=== PATIENT | female | born 1935 | race Caucasian/White ===

== ENCOUNTER 2018-12-31 13:01 | Inpatient (IN) | payer MEDICARE, OTHER, MEDICAID ==
[2018-12-31 13:49] LABS: ADD MAN DIFF? NO
[2018-12-31 14:07] LABS: WHITE BLOOD COUNT 7.2 10^3/ul (4.8-10.8)
[2018-12-31 14:07] LABS: ABNORMAL IP MESSAGE 1; BASOPHIL # 0.1 10^3/ul (0.0-0.1); BASOPHILS % 0.7 % (0.0-2.0); EOSINOPHILS # 0.2 10^3/ul (0.0-0.5); EOSINOPHILS % 3.1 % (0.0-7.0); HEMATOCRIT 23.5 % (37.0-47.0); LYMPHOCYTES # 1.4 10^3/ul (0.8-2.9); LYMPHOCYTES % 18.8 % (15.0-51.0); MEAN CORPUSCULAR HEMOGLOBIN 24.8 pg (29.0-33.0); MEAN CORPUSCULAR HGB CONC 29.4 g/dl (32.0-37.0); MEAN CORPUSCULAR VOLUME 84.5 fl (82.0-101.0); MEAN PLATELET VOLUME 11.4 fl (7.4-10.4); MONOCYTES % 13.8 % (0.0-11.0); NEUTROPHIL # 4.6 10^3/ul (1.6-7.5); NEUTROPHILS % 63.2 % (39.0-77.0); PLATELET COUNT 336 10^3/UL (140-415); RED BLOOD COUNT 2.78 10^6/ul (4.20-5.40); RED CELL DISTRIBUTION WIDTH 14.8 % (11.5-14.5)
[2018-12-31 14:13] LABS: HEMOGLOBIN 6.9 g/dl (12.0-16.0); POSITIVE DIFF @See below
[2018-12-31 14:26] LABS: INR 1.08; PROTIME 14.1 Sec (11.9-14.9); PT RATIO 1.1
[2018-12-31 14:27] LABS: ANION GAP 11 (5-13); BLOOD UREA NITROGEN 80 mg/dl (7-20); CALCIUM 8.8 mg/dl (8.4-10.2); CARBON DIOXIDE 35 mmol/L (21-31); CHLORIDE 93 mmol/L (97-110); CREATININE 2.04 mg/dl (0.44-1.00); GLUCOSE 177 mg/dl (70-220); PARTIAL THROMBOPLASTIN TIME 30.1 Sec (23.0-35.0); POTASSIUM 3.6 mmol/L (3.5-5.1); SODIUM 139 mmol/L (135-144)
[2018-12-31 14:34] LABS: ANISOCYTOSIS 1+ (0-0); EOSINOPHILS % (M) 1 % (0-7); GIANT THROMBO% (M) 8 % (0-0); HYPOCHROMASIA 3+ (0-0); LYMPHOCYTES #M 1.2 10^3/ul (0.8-2.9); LYMPHOCYTES % (M) 18 % (15-51); MICROCYTOSIS 1+ (0-0); MONOCYTE #M 0.7 10^3/ul (0.3-0.9); MONOCYTES % (M) 11 % (0-11); PLATELET ESTIMATE NORMAL; POIKILOCYTOSIS 1+ (0-0); POLYCHROMASIA 3+ (0-0); RBC MORPHOLOGY COMMENT @See below; REACTIVE LYMPHOCYTES #M 0.1 10^3/ul (0.0-0.0); REACTIVE LYMPHOCYTES% (M) 2 % (0-0); SEGMENTED NEUTROPHILS (M) % 68 % (39-77); SMUDGE%M 1 % (0-0); WBC MORPHOLOGY COMMENT @See below
[2018-12-31 14:39] LABS: B-TYPE NATRIURETIC PEPTIDE 6120 PG/ML (0-450); TROPONIN-I < 0.012 ng/ml (0.000-0.120)
[2018-12-31] MEDS ORDERED: ONDANSETRON 4 MG INJ IV (15:30)
[2018-12-31] MEDS ORDERED: morphine 2 MG INJ IV (15:30)
[2018-12-31] MEDS ORDERED: LORAZEPAM 2 MG INJ IV (15:30)
[2018-12-31] MEDS ORDERED: hydrALAzine 20 MG INJ IV (15:30)
[2018-12-31] MEDS ORDERED: ACETAMINOPHEN 325 MG TAB PO (15:30)
[2018-12-31] MEDS ORDERED: ALBUTEROL/IPRATROPIUM (NEB) 3 ML AMP HHN (15:30)
[2018-12-31] MEDS ORDERED: NACL 0.9% 3 ML SYG IV (15:30)
[2018-12-31] MEDS ORDERED: MAGNESIUM HYDROXIDE 30ML CUP PO (15:30)
[2018-12-31] MEDS ORDERED: NITROGLYCERIN (SL) 0.4 MG TAB SL (15:30)
[2018-12-31] MEDS ORDERED: HYDROCODONE/APAP (5/325) TAB PO (15:30)
[2018-12-31] MEDS ORDERED: DOCUSATE SODIUM 100 MG CAP PO (15:30)
[2018-12-31] MEDS ORDERED: GLUCOSE GEL 15 GRAM TUBE BUCCAL (16:30)
[2018-12-31] MEDS ORDERED: GLUCOSE GEL 15 GRAM TUBE PO ×2 (16:30)
[2018-12-31] MEDS ORDERED: DEXTROSE 50% 50 ML SYRINGE IV ×2 (16:30)
[2018-12-31] MEDS ORDERED: GLUCAGON 1 MG INJ IM (16:30)
[2018-12-31 16:54] LABS: FREE T4 (FREE THYROXINE) 2.07 ng/dl (0.85-1.93)
[2018-12-31] MEDS: INSULIN ASPART [NOVOLOG] 3 ML PEN SC ×3 (17:00→21:30)
[2018-12-31] MEDS: FUROSEMIDE 40 MG INJ IV (18:54)
[2018-12-31] MEDS: PANTOPRAZOLE (EC) 40 MG TAB PO (18:54)
[2018-12-31 19:18] LABS: PROTIME 14.3 Sec (11.9-14.9); PT RATIO 1.1
[2018-12-31 19:19] LABS: PARTIAL THROMBOPLASTIN TIME 28.9 Sec (23.0-35.0)
[2018-12-31 19:30] LABS: CK-MB 0.46 ng/ml (0.0-2.4); TROPONIN-I < 0.012 ng/ml (0.000-0.120)
[2018-12-31 19:31] LABS: CREATINE KINASE < 20 IU/L (23-200)
[2018-12-31] MEDS ORDERED: HEPARIN 5,000 UNIT/1 ML VIAL SC (21:00)
[2018-12-31] MEDS: ATORVASTATIN 20 MG TAB PO (21:19)
[2018-12-31] MEDS: FERROUS SULFATE (EC) 325 MG TAB PO (21:19)
[2018-12-31] MEDS: INSULIN GLARGINE [LANTus] (100 UNITS/ML) SYG SC (21:30)
[2018-12-31 21:52] LABS: ADD UMIC NO; UR ASCORBIC ACID NEGATIVE (NEGATIVE); UR BILIRUBIN (Dip) NEGATIVE (NEGATIVE); UR BLOOD (Dip) NEGATIVE (NEGATIVE); UR CLARITY CLEAR (CLEAR); UR COLOR STRAW (YELLOW); UR GLUCOSE (Dip) NEGATIVE (NEGATIVE); UR KETONES (Dip) NEGATIVE (NEGATIVE); UR LEUKOCYTE ESTERASE (Dip) NEGATIVE Leu/ul (NEGATIVE); UR NITRITE (Dip) NEGATIVE (NEGATIVE); UR SPECIFIC GRAVITY (Dip) 1.008 (1.003-1.030); UR TOTAL PROTEIN (Dip) NEGATIVE (NEGATIVE); UR UROBILINOGEN (Dip) NEGATIVE (NEGATIVE)
[2018-12-31 22:15] LABS: IMMEDIATE SPIN CROSSMATCH 1 2
[2018-12-31 22:26] LABS: CREATININE,URINE RANDOM 26.31 mg/dl (20-320)
[2018-12-31 22:26] LABS: SODIUM,URINE RANDOM 74 mmol/L (30-90)
[2018-12-31] MEDS: ALPRAZOLAM 0.5 MG TAB PO (23:17)
[2019-01-01] MEDS: ZOLPIDEM 5 MG TAB PO (00:30)
[2019-01-01 01:22] LABS: CREATINE KINASE < 20 IU/L (23-200)
[2019-01-01 01:29] LABS: CK-MB 0.44 ng/ml (0.0-2.4); TROPONIN-I < 0.012 ng/ml (0.000-0.120)
[2019-01-01] MEDS ORDERED: ACCU-CHEK XX (02:00)
[2019-01-01] MEDS: FUROSEMIDE 40 MG INJ IV (05:24)
[2019-01-01] MEDS: PANTOPRAZOLE (EC) 40 MG TAB PO (05:24)
[2019-01-01] MEDS: INSULIN ASPART [NOVOLOG] 3 ML PEN SC ×2 (05:37→12:00)
[2019-01-01] MEDS ORDERED: PANTOPRAZOLE 40 MG INJ IV (06:00)
[2019-01-01] MEDS ORDERED: PANTOPRAZOLE (EC) 40 MG TAB PO (06:00)
[2019-01-01 06:22] LABS: ADD MAN DIFF? NO
[2019-01-01 06:27] LABS: BASOPHIL # 0.1 10^3/ul (0.0-0.1); BASOPHILS % 0.7 % (0.0-2.0); EOSINOPHILS # 0.2 10^3/ul (0.0-0.5); EOSINOPHILS % 2.4 % (0.0-7.0); HEMOGLOBIN 8.5 g/dl (12.0-16.0); LYMPHOCYTES # 1.2 10^3/ul (0.8-2.9); LYMPHOCYTES % 16.3 % (15.0-51.0); MEAN CORPUSCULAR HEMOGLOBIN 25.8 pg (29.0-33.0); MEAN CORPUSCULAR HGB CONC 31.5 g/dl (32.0-37.0); MEAN CORPUSCULAR VOLUME 81.8 fl (82.0-101.0); MEAN PLATELET VOLUME 10.8 fl (7.4-10.4); MONOCYTES % 13.4 % (0.0-11.0); NEUTROPHIL # 4.8 10^3/ul (1.6-7.5); NEUTROPHILS % 66.6 % (39.0-77.0); PLATELET COUNT 312 10^3/UL (140-415); RED CELL DISTRIBUTION WIDTH 14.6 % (11.5-14.5)
[2019-01-01 06:27] LABS: WHITE BLOOD COUNT 7.2 10^3/ul (4.8-10.8)
[2019-01-01 06:47] LABS: HEMOGLOBIN A1C 8.9 % (0-5.9)
[2019-01-01 06:56] LABS: ANION GAP 9 (5-13); BLOOD UREA NITROGEN 76 mg/dl (7-20); CALCIUM 8.7 mg/dl (8.4-10.2); CARBON DIOXIDE 38 mmol/L (21-31); CHLORIDE 93 mmol/L (97-110); CREATININE 1.79 mg/dl (0.44-1.00); GLUCOSE 140 mg/dl (70-220); PHOSPHORUS 3.9 mg/dl (2.5-4.9); POTASSIUM 3.2 mmol/L (3.5-5.1); SODIUM 140 mmol/L (135-144)
[2019-01-01 07:03] LABS: CHOL/HDL RATIO 3.6 RATIO; HDL CHOLESTEROL 26 mg/dl (33-92); LDL CHOLESTEROL,CALCULATED 43 mg/dl; TRIGLYCERIDES 127 mg/dl (0-149)
[2019-01-01 07:03] LABS: CHOLESTEROL 94 mg/dl (100-200)
[2019-01-01 07:23] LABS: THYROID STIMULATING HORMONE 0.634 MIU/L (0.465-4.680)
[2019-01-01] MEDS: FERROUS SULFATE (EC) 325 MG TAB PO ×2 (09:00→12:26)
[2019-01-01] MEDS: POTASSIUM CHLORIDE (SR) 10 MEQ TAB PO ×2 (09:00→12:29)
[2019-01-01] MEDS: POTASSIUM CHLORIDE 100 ML IVPB (09:00)
[2019-01-01] MEDS: METOLAZONE 5 MG TAB PO (09:00)
[2019-01-01] MEDS: POTASSIUM CHLORIDE (SR) 20 MEQ TAB PO ×2 (09:16→12:22)
[2019-01-01 09:40] LABS: AADO2 Arterial 36.3 mmHg (7.0-24.0); Allen Test ACCEPTAB; Arterial Blood Gas Oxygen Sat 87.8 mmHG (95.0-100.0); Arterial COHb 0.6 % (0.0-3.0); Arterial Fraction of Oxyhgb 87.1 % (93.0-99.0); Arterial HCO3 34.2 mmol/L (22.0-26.0); Arterial MetHb 0.2 % (0.0-1.5); Arterial pCO2 50.2 mmhg (35-45); MODE ROOM AIR; Site Right Radial
[2019-01-01] MEDS ORDERED: POTASSIUM CHLORIDE (SR) 20 MEQ TAB PO (11:50)
[2019-01-03 15:52] LABS: CREATININE, RANDOM URINE 29 mg/dL (20-275); MICROALBUMIN 0.5 mg/dL; MICROALBUMIN/CREATININE RATIO 17 (<30)
== END 2019-01-01 15:59 | disposition left against medical advice (07) | DRG 377 ==
LOC: E/R 13:01 → TEL 15:24
PROVIDERS: Pediatrics Neonatal-Perinatal Medicine
PROC: 30233N1 Transfusion of Nonautologous Red Blood Cells into Peripheral Vein, Percutaneous Approach (ICD-10-PCS; principal; 2018-12-31)
DX: K25.4 Chronic or unspecified gastric ulcer with hemorrhage (principal); I50.21 Acute systolic (congestive) heart failure; D62 Acute posthemorrhagic anemia; N17.9 Acute kidney failure, unspecified; I13.0 Hypertensive heart and chronic kidney disease with heart failure and stage 1 through stage 4 chronic kidney disease, or unspecified chronic kidney disease; I48.2 Chronic atrial fibrillation; E11.22 Type 2 diabetes mellitus with diabetic chronic kidney disease; I35.0 Nonrheumatic aortic (valve) stenosis; E78.5 Hyperlipidemia, unspecified; I25.10 Atherosclerotic heart disease of native coronary artery without angina pectoris; I12.9 Hypertensive chronic kidney disease with stage 1 through stage 4 chronic kidney disease, or unspecified chronic kidney disease; N18.9 Chronic kidney disease, unspecified; E87.6 Hypokalemia; Z79.4 Long term (current) use of insulin
CPT/HCPCS: 36415; 36430; 36600; 71045; 76775; 80048; 80061; 81003; 82043; 82550; 82553; 82803; 82962; 83036; 83735; 83880; 84100; 84155; 84300; 84439; 84443; 84484; 85025; 85610; 85730; 86850; 86900; 86901; 86920; 87086; 93005; 93306; 97161; 97167; 99285-25

== ENCOUNTER 2019-06-05 19:28 | Inpatient (IN) | payer MEDICARE, OTHER ==
[2019-06-05 20:00] LABS: ADD MAN DIFF? NO
[2019-06-05] MEDS: NITROGLYCERIN 2% 1 GM OINT PKT TD (20:02)
[2019-06-05] MEDS: ASPIRIN 81 MG TAB PO (20:02)
[2019-06-05] MEDS: FUROSEMIDE 40 MG INJ IV (20:02)
[2019-06-05] MEDS: NITROGLYCERIN (SL) 0.4 MG TAB SL (20:02)
[2019-06-05 20:38] LABS: ANION GAP 11 (5-13); BLOOD UREA NITROGEN 114 mg/dl (7-20); CALCIUM 8.8 mg/dl (8.4-10.2); CARBON DIOXIDE 37 mmol/L (21-31); CHLORIDE 89 mmol/L (97-110); CREATININE 2.37 mg/dl (0.44-1.00); GLUCOSE 247 mg/dl (70-220); INR 1.18; POTASSIUM 4.7 mmol/L (3.5-5.1); PROTIME 15.1 Sec (11.9-14.9); PT RATIO 1.2; SODIUM 137 mmol/L (135-144)
[2019-06-05 20:39] LABS: PARTIAL THROMBOPLASTIN TIME 32.1 Sec (23.0-35.0)
[2019-06-05 20:48] LABS: ABNORMAL IP MESSAGE 1; BASOPHIL # 0.1 10^3/ul (0.0-0.1); BASOPHILS % 0.6 % (0.0-2.0); EOSINOPHILS # 0.1 10^3/ul (0.0-0.5); EOSINOPHILS % 0.8 % (0.0-7.0); HEMATOCRIT 30.4 % (37.0-47.0); HEMOGLOBIN 8.8 g/dl (12.0-16.0); LYMPHOCYTES # 1.3 10^3/ul (0.8-2.9); LYMPHOCYTES % 9.9 % (15.0-51.0); MEAN CORPUSCULAR HEMOGLOBIN 26.2 pg (29.0-33.0); MEAN CORPUSCULAR HGB CONC 28.9 g/dl (32.0-37.0); MEAN CORPUSCULAR VOLUME 90.5 fl (82.0-101.0); MEAN PLATELET VOLUME 11.9 fl (7.4-10.4); MONOCYTE # 1.7 10^3/ul (0.3-0.9); NEUTROPHIL # 9.9 10^3/ul (1.6-7.5); NEUTROPHILS % 74.7 % (39.0-77.0); PLATELET COUNT 372 10^3/UL (140-415); RED BLOOD COUNT 3.36 10^6/ul (4.20-5.40); RED CELL DISTRIBUTION WIDTH 15.9 % (11.5-14.5)
[2019-06-05 20:48] LABS: WHITE BLOOD COUNT 13.3 10^3/ul (4.8-10.8)
[2019-06-05 21:01] LABS: POSITIVE DIFF @See below
[2019-06-05] MEDS ORDERED: ONDANSETRON 4 MG INJ IV ×2 (22:00→23:30)
[2019-06-05] MEDS ORDERED: ZOLPIDEM 5 MG TAB PO (23:30)
[2019-06-05] MEDS ORDERED: NACL 0.9% 3 ML SYG IV (23:30)
[2019-06-05] MEDS ORDERED: NITROGLYCERIN (SL) 0.4 MG TAB SL (23:30)
[2019-06-06] MEDS ORDERED: GLUCAGON 1 MG INJ IM (06:00)
[2019-06-06] MEDS ORDERED: DEXTROSE 50% 50 ML SYRINGE IV ×2 (06:00)
[2019-06-06] MEDS ORDERED: GLUCOSE GEL 15 GRAM TUBE BUCCAL (06:00)
[2019-06-06] MEDS ORDERED: GLUCOSE GEL 15 GRAM TUBE PO ×2 (06:00)
[2019-06-06] MEDS: FUROSEMIDE 40 MG INJ IV (06:19)
[2019-06-06] MEDS: PANTOPRAZOLE (EC) 40 MG TAB PO (06:19)
[2019-06-06 07:02] LABS: ADD MAN DIFF? NO
[2019-06-06 07:07] LABS: WHITE BLOOD COUNT 9.9 10^3/ul (4.8-10.8)
[2019-06-06 07:07] LABS: BASOPHIL # 0.1 10^3/ul (0.0-0.1); BASOPHILS % 0.7 % (0.0-2.0); EOSINOPHILS # 0.1 10^3/ul (0.0-0.5); EOSINOPHILS % 1.4 % (0.0-7.0); HEMATOCRIT 26.2 % (37.0-47.0); HEMOGLOBIN 7.6 g/dl (12.0-16.0); LYMPHOCYTES # 1.1 10^3/ul (0.8-2.9); LYMPHOCYTES % 10.6 % (15.0-51.0); MEAN CORPUSCULAR HEMOGLOBIN 26.1 pg (29.0-33.0); MONOCYTE # 1.4 10^3/ul (0.3-0.9); MONOCYTES % 13.6 % (0.0-11.0); NEUTROPHIL # 7.3 10^3/ul (1.6-7.5); NEUTROPHILS % 73.1 % (39.0-77.0); PLATELET COUNT 336 10^3/UL (140-415); RED BLOOD COUNT 2.91 10^6/ul (4.20-5.40); RED CELL DISTRIBUTION WIDTH 15.7 % (11.5-14.5)
[2019-06-06 07:24] LABS: ALANINE AMINOTRANSFERASE 27 IU/L (13-69); ALBUMIN 3.1 g/dl (3.3-4.9); ALBUMIN/GLOBULIN RATIO 1.06; ALKALINE PHOSPHATASE 111 IU/L (42-121); ANION GAP 13 (5-13); ASPARTATE AMINO TRANSFERASE 19 IU/L (15-46); BILIRUBIN,INDIRECT 0.4 mg/dl (0-1.1); BILIRUBIN,TOTAL 0.4 mg/dl (0.2-1.3); BLOOD UREA NITROGEN 112 mg/dl (7-20); CALCIUM 8.2 mg/dl (8.4-10.2); CARBON DIOXIDE 34 mmol/L (21-31); CHLORIDE 91 mmol/L (97-110); CHOL/HDL RATIO 4.1 RATIO; CHOLESTEROL 100 mg/dl (100-200); CREATINE KINASE 159 IU/L (23-200); CREATININE 2.84 mg/dl (0.44-1.00); GLUCOSE 284 mg/dl (70-220); HDL CHOLESTEROL 24 mg/dl (33-92); LDL CHOLESTEROL,CALCULATED 46 mg/dl; POTASSIUM 4.1 mmol/L (3.5-5.1); SODIUM 138 mmol/L (135-144); TRIGLYCERIDES 152 mg/dl (0-149)
[2019-06-06 07:26] LABS: HEMOGLOBIN A1C 7.4 % (0-5.9)
[2019-06-06 07:36] LABS: B-TYPE NATRIURETIC PEPTIDE 9610 PG/ML (0-450); CK-MB 1.66 ng/ml (0.0-2.4); TROPONIN-I 0.051 ng/ml (0.000-0.120)
[2019-06-06] MEDS: INSULIN ASPART [NOVOLOG] 3 ML PEN SC ×4 (08:17→21:00)
[2019-06-06] MEDS: METOLAZONE 5 MG TAB PO (10:01)
[2019-06-06] MEDS: SERTRALINE 50 MG TAB PO (10:01)
[2019-06-06] MEDS: FERROUS SULFATE (EC) 325 MG TAB PO ×2 (10:02→20:28)
[2019-06-06] MEDS: POTASSIUM CHLORIDE (SR) 10 MEQ TAB PO (10:04)
[2019-06-06] MEDS: HEPARIN 5,000 UNIT/1 ML VIAL SC ×2 (10:10→20:28)
[2019-06-06] MEDS: ACETAMINOPHEN 325 MG TAB PO (10:30)
[2019-06-06] MEDS: HYDROCODONE/APAP (5/325) TAB PO ×2 (11:56→22:42)
[2019-06-06] MEDS: SOD CHLORIDE 0.9% 250 ML IV* (13:33)
[2019-06-06] MEDS: ATORVASTATIN 20 MG TAB PO (20:29)
[2019-06-06] MEDS: INSULIN GLARGINE [LANTus] (100 UNITS/ML) SYG SC (21:01)
[2019-06-06 22:03] LABS: IMMEDIATE SPIN CROSSMATCH 1 1
[2019-06-07] MEDS: ACETAMINOPHEN 325 MG TAB PO (02:11)
[2019-06-07] MEDS: ACCU-CHEK XX (02:11)
[2019-06-07] MEDS: HYDROCODONE/APAP (5/325) TAB PO ×5 (04:38→18:42)
[2019-06-07] MEDS: PANTOPRAZOLE (EC) 40 MG TAB PO (06:33)
[2019-06-07] MEDS: FUROSEMIDE 40 MG INJ IV (06:36)
[2019-06-07] MEDS: POTASSIUM CHLORIDE (SR) 10 MEQ TAB PO (08:14)
[2019-06-07] MEDS: FERROUS SULFATE (EC) 325 MG TAB PO ×2 (08:14→22:57)
[2019-06-07] MEDS: SERTRALINE 50 MG TAB PO (08:14)
[2019-06-07] MEDS: HEPARIN 5,000 UNIT/1 ML VIAL SC (08:15)
[2019-06-07] MEDS: INSULIN ASPART [NOVOLOG] 3 ML PEN SC ×5 (08:21→21:04)
[2019-06-07 11:15] LABS: ADD MAN DIFF? NO
[2019-06-07 11:20] LABS: BASOPHIL # 0.1 10^3/ul (0.0-0.1); BASOPHILS % 0.7 % (0.0-2.0); EOSINOPHILS # 0.3 10^3/ul (0.0-0.5); EOSINOPHILS % 3.1 % (0.0-7.0); HEMATOCRIT 28.2 % (37.0-47.0); HEMOGLOBIN 8.3 g/dl (12.0-16.0); LYMPHOCYTES % 12.1 % (15.0-51.0); MEAN CORPUSCULAR HEMOGLOBIN 26.5 pg (29.0-33.0); MEAN CORPUSCULAR HGB CONC 29.4 g/dl (32.0-37.0); MEAN CORPUSCULAR VOLUME 90.1 fl (82.0-101.0); MEAN PLATELET VOLUME 11.4 fl (7.4-10.4); MONOCYTES % 11.9 % (0.0-11.0); NEUTROPHIL # 5.8 10^3/ul (1.6-7.5); NEUTROPHILS % 71.7 % (39.0-77.0); PLATELET COUNT 324 10^3/UL (140-415); RED BLOOD COUNT 3.13 10^6/ul (4.20-5.40); RED CELL DISTRIBUTION WIDTH 15.7 % (11.5-14.5)
[2019-06-07 11:39] LABS: ANION GAP 10 (5-13); CALCIUM 8.2 mg/dl (8.4-10.2); CARBON DIOXIDE 37 mmol/L (21-31); CHLORIDE 87 mmol/L (97-110); CREATININE 3.69 mg/dl (0.44-1.00); GLUCOSE 234 mg/dl (70-220); POTASSIUM 4.3 mmol/L (3.5-5.1); SODIUM 134 mmol/L (135-144)
[2019-06-07 11:53] LABS: BLOOD UREA NITROGEN 127 mg/dl (7-20)
[2019-06-07] MEDS: morphine 2 MG INJ IV (13:51)
[2019-06-07] MEDS: BACLOFEN 10 MG TAB PO ×2 (16:17→21:00)
[2019-06-07] MEDS: METOPROLOL 25 MG TAB PO ×2 (16:21→22:50)
[2019-06-07 18:01] LABS: CREATINE KINASE 93 IU/L (23-200)
[2019-06-07 18:15] LABS: CK INDEX 1.3; CK-MB 1.21 ng/ml (0.0-2.4)
[2019-06-07 18:49] LABS: ADD UMIC YES; UR ASCORBIC ACID NEGATIVE (NEGATIVE); UR BILIRUBIN (Dip) NEGATIVE (NEGATIVE); UR BLOOD (Dip) NEGATIVE (NEGATIVE); UR CLARITY CLEAR (CLEAR); UR COLOR AMBER (YELLOW); UR GLUCOSE (Dip) NEGATIVE (NEGATIVE); UR KETONES (Dip) NEGATIVE (NEGATIVE); UR LEUKOCYTE ESTERASE (Dip) 1+ Leu/ul (NEGATIVE); UR NITRITE (Dip) NEGATIVE (NEGATIVE); UR RBC 1 /HPF (0-5); UR SPECIFIC GRAVITY (Dip) 1.014 (1.003-1.030); UR TOTAL PROTEIN (Dip) NEGATIVE (NEGATIVE); UR UROBILINOGEN (Dip) NEGATIVE (NEGATIVE); UR WBC 4 /HPF (0-5)
[2019-06-07 19:19] LABS: CREATININE,URINE RANDOM 125.78 mg/dl (20-320)
[2019-06-07 19:27] LABS: SODIUM,URINE RANDOM < 13 mmol/L (30-90)
[2019-06-07 19:59] LABS: THYROID STIMULATING HORMONE 0.251 MIU/L (0.465-4.680)
[2019-06-07] MEDS ORDERED: MAGNESIUM HYDROXIDE 30ML CUP PO (20:00)
[2019-06-07] MEDS: INSULIN GLARGINE [LANTus] (100 UNITS/ML) SYG SC (21:04)
[2019-06-07] MEDS: MAGNESIUM HYDROXIDE 30ML CUP PO (22:55)
[2019-06-07] MEDS: ALPRAZOLAM 0.5 MG TAB PO (22:56)
[2019-06-07] MEDS: ATORVASTATIN 20 MG TAB PO (23:16)
[2019-06-08 01:38] LABS: CREATINE KINASE 68 IU/L (23-200)
[2019-06-08 01:52] LABS: CK INDEX 1.4; CK-MB 0.96 ng/ml (0.0-2.4); TROPONIN-I 0.019 ng/ml (0.000-0.120)
[2019-06-08] MEDS: ACCU-CHEK XX ×2 (02:37)
[2019-06-08] MEDS: PANTOPRAZOLE (EC) 40 MG TAB PO (05:26)
[2019-06-08 06:24] LABS: ADD MAN DIFF? NO
[2019-06-08 06:33] LABS: WHITE BLOOD COUNT 7.5 10^3/ul (4.8-10.8)
[2019-06-08 06:33] LABS: BASOPHILS % 0.5 % (0.0-2.0); EOSINOPHILS # 0.2 10^3/ul (0.0-0.5); EOSINOPHILS % 3.1 % (0.0-7.0); HEMATOCRIT 27.6 % (37.0-47.0); HEMOGLOBIN 8.1 g/dl (12.0-16.0); LYMPHOCYTES # 0.8 10^3/ul (0.8-2.9); LYMPHOCYTES % 10.9 % (15.0-51.0); MEAN CORPUSCULAR HEMOGLOBIN 26.5 pg (29.0-33.0); MEAN CORPUSCULAR HGB CONC 29.3 g/dl (32.0-37.0); MEAN CORPUSCULAR VOLUME 90.2 fl (82.0-101.0); MEAN PLATELET VOLUME 11.8 fl (7.4-10.4); MONOCYTE # 0.8 10^3/ul (0.3-0.9); MONOCYTES % 10.9 % (0.0-11.0); NEUTROPHIL # 5.5 10^3/ul (1.6-7.5); NEUTROPHILS % 74.2 % (39.0-77.0); PLATELET COUNT 327 10^3/UL (140-415); RED BLOOD COUNT 3.06 10^6/ul (4.20-5.40); RED CELL DISTRIBUTION WIDTH 15.5 % (11.5-14.5)
[2019-06-08 06:51] LABS: ANION GAP 13 (5-13); CALCIUM 8.2 mg/dl (8.4-10.2); CARBON DIOXIDE 35 mmol/L (21-31); CHLORIDE 87 mmol/L (97-110); CREATININE 3.77 mg/dl (0.44-1.00); GLUCOSE 170 mg/dl (70-220); POTASSIUM 4.5 mmol/L (3.5-5.1); SODIUM 135 mmol/L (135-144)
[2019-06-08 06:54] LABS: MAGNESIUM 2.4 mg/dl (1.7-2.5)
[2019-06-08 06:54] LABS: PHOSPHORUS 7.7 mg/dl (2.5-4.9)
[2019-06-08 06:59] LABS: CREATINE KINASE 72 IU/L (23-200)
[2019-06-08 07:04] LABS: CK INDEX 1.5; CK-MB 1.11 ng/ml (0.0-2.4); TROPONIN-I 0.025 ng/ml (0.000-0.120)
[2019-06-08] MEDS: INSULIN ASPART [NOVOLOG] 3 ML PEN SC ×7 (07:39→20:34)
[2019-06-08 07:54] LABS: BLOOD UREA NITROGEN 131 mg/dl (7-20)
[2019-06-08] MEDS: METOPROLOL 25 MG TAB PO ×2 (08:00→20:33)
[2019-06-08] MEDS: FERROUS SULFATE (EC) 325 MG TAB PO (08:24)
[2019-06-08] MEDS: POTASSIUM CHLORIDE (SR) 10 MEQ TAB PO (08:24)
[2019-06-08] MEDS: BACLOFEN 10 MG TAB PO ×3 (08:24→20:33)
[2019-06-08] MEDS: SERTRALINE 50 MG TAB PO (08:24)
[2019-06-08] MEDS: CEFTRIAXONE 1 GM/50 ML (PMX) 50 ML IVPB (11:33)
[2019-06-08] MEDS: HYDROmorphONE 0.5 MG/0.5 ML SYG IV ×2 (11:34→20:58)
[2019-06-08] MEDS: SOD FERRIC GLUC COMPLX 125 MG in SOD CHLORIDE 0.9% 100 ML IVPB (12:50)
[2019-06-08] MEDS: ATORVASTATIN 20 MG TAB PO (20:33)
[2019-06-08] MEDS: INSULIN GLARGINE [LANTus] (100 UNITS/ML) SYG SC (20:33)
[2019-06-08] MEDS ORDERED: LEVALBUTEROL (NEB) 0.63 MG/3 ML AMP HHN (22:30)
[2019-06-08] MEDS ORDERED: IPRATROPIUM (NEB) 0.5 MG/2.5 ML AMP HHN (22:30)
[2019-06-08] MEDS: ALBUTEROL 0.083% (NEB) 2.5 MG/3 ML AMP NEB (22:34)
[2019-06-08] MEDS: ACETYLCYSTEINE 20% 4 ML VIAL NEB (22:34)
[2019-06-08] MEDS ORDERED: ACETYLCYSTEINE 20% 4 ML VIAL NEB (23:00)
[2019-06-08 23:27] LABS: AADO2 Arterial 299.8 mmHg (7.0-24.0); Allen Test ACCEPTAB; Arterial Base Excess 3.5 mmol/L (-3.0-3); Arterial Blood Gas Oxygen Sat 88.3 mmHG (95.0-100.0); Arterial COHb 0.8 % (0.0-3.0); Arterial Fraction of Oxyhgb 87.3 % (93.0-99.0); Arterial HCO3 31.8 mmol/L (22.0-26.0); Arterial MetHb 0.3 % (0.0-1.5); Arterial pCO2 68.7 mmhg (35-45); MODE MASK - SIMPLE; Site Right Radial
[2019-06-09] MEDS: INSULIN ASPART [NOVOLOG] 3 ML PEN SC ×7 (01:00→17:15)
[2019-06-09] MEDS: ACCU-CHEK XX ×2 (02:00)
[2019-06-09] MEDS: PANTOPRAZOLE (EC) 40 MG TAB PO (05:07)
[2019-06-09] MEDS: FUROSEMIDE 40 MG INJ IV (06:30)
[2019-06-09 07:41] LABS: ADD MAN DIFF? NO
[2019-06-09 07:50] LABS: BASOPHILS % 0.2 % (0.0-2.0); HEMATOCRIT 30.3 % (37.0-47.0); HEMOGLOBIN 8.9 g/dl (12.0-16.0); LYMPHOCYTES # 0.8 10^3/ul (0.8-2.9); LYMPHOCYTES % 5.8 % (15.0-51.0); MEAN CORPUSCULAR HEMOGLOBIN 25.9 pg (29.0-33.0); MEAN CORPUSCULAR HGB CONC 29.4 g/dl (32.0-37.0); MEAN CORPUSCULAR VOLUME 88.3 fl (82.0-101.0); MEAN PLATELET VOLUME 11.5 fl (7.4-10.4); MONOCYTE # 1.1 10^3/ul (0.3-0.9); NEUTROPHIL # 11.3 10^3/ul (1.6-7.5); NEUTROPHILS % 85.5 % (39.0-77.0); PLATELET COUNT 340 10^3/UL (140-415); RED BLOOD COUNT 3.43 10^6/ul (4.20-5.40); RED CELL DISTRIBUTION WIDTH 15.6 % (11.5-14.5)
[2019-06-09 07:50] LABS: WHITE BLOOD COUNT 13.2 10^3/ul (4.8-10.8)
[2019-06-09] MEDS: BACLOFEN 10 MG TAB PO (08:27)
[2019-06-09] MEDS: SERTRALINE 50 MG TAB PO (08:27)
[2019-06-09] MEDS: POTASSIUM CHLORIDE (SR) 10 MEQ TAB PO (08:27)
[2019-06-09] MEDS: METOPROLOL 25 MG TAB PO (08:27)
[2019-06-09 08:36] LABS: ANION GAP 15 (5-13); CALCIUM 8.4 mg/dl (8.4-10.2); CARBON DIOXIDE 33 mmol/L (21-31); CHLORIDE 89 mmol/L (97-110); CREATININE 3.58 mg/dl (0.44-1.00); GLUCOSE 154 mg/dl (70-220); PHOSPHORUS 7.5 mg/dl (2.5-4.9); POTASSIUM 4.8 mmol/L (3.5-5.1); SODIUM 137 mmol/L (135-144)
[2019-06-09 09:01] LABS: BLOOD UREA NITROGEN 144 mg/dl (7-20)
[2019-06-09] MEDS: CEFTRIAXONE 1 GM/50 ML (PMX) 50 ML IVPB (11:24)
[2019-06-09] MEDS: SOD FERRIC GLUC COMPLX 125 MG in SOD CHLORIDE 0.9% 100 ML IVPB (12:12)
[2019-06-09 15:51] LABS: CREATININE, RANDOM URINE 112 mg/dL (20-275); MICROALBUMIN 6.4 mg/dL; MICROALBUMIN/CREATININE RATIO 57 (<30)
[2019-06-09] MEDS ORDERED: ATROPINE 1% 5 ML OPH SL (21:00)
[2019-06-09] MEDS ORDERED: ACETAMINOPHEN 650 MG SUPP PR (21:00)
[2019-06-09] MEDS ORDERED: ONDANSETRON 4 MG INJ IV (21:00)
[2019-06-09] MEDS ORDERED: ARTIFICIAL TEARS 15 ML OPH BOTH EYES (21:00)
[2019-06-09] MEDS ORDERED: DIMETHICONE STICK TOP (21:00)
[2019-06-09] MEDS: LEVALBUTEROL (NEB) 0.63 MG/3 ML AMP HHN (22:23)
[2019-06-09] MEDS: IPRATROPIUM (NEB) 0.5 MG/2.5 ML AMP HHN (22:23)
[2019-06-09] MEDS: ALBUTEROL 0.083% (NEB) 2.5 MG/3 ML AMP NEB (22:31)
[2019-06-09] MEDS: ACETYLCYSTEINE 20% 4 ML VIAL NEB (22:35)
[2019-06-09] MEDS: morphine 2 MG INJ IV (22:36)
[2019-06-09] MEDS ORDERED: IPRATROPIUM (NEB) 0.5 MG/2.5 ML AMP HHN (23:00)
[2019-06-09] MEDS ORDERED: ACETYLCYSTEINE 20% 4 ML VIAL NEB (23:00)
[2019-06-09] MEDS ORDERED: LEVALBUTEROL (NEB) 0.63 MG/3 ML AMP HHN (23:00)
[2019-06-10] MEDS: IPRATROPIUM (NEB) 0.5 MG/2.5 ML AMP HHN ×6 (01:22→20:05)
[2019-06-10] MEDS: LEVALBUTEROL (NEB) 0.63 MG/3 ML AMP HHN ×6 (01:22→20:04)
[2019-06-10] MEDS: ACETYLCYSTEINE 20% 4 ML VIAL NEB ×6 (01:32→20:05)
[2019-06-10] MEDS: morphine 2 MG INJ IV ×4 (01:50→14:28)
[2019-06-10 07:03] LABS: ADD MAN DIFF? NO
[2019-06-10 07:06] LABS: WHITE BLOOD COUNT 13.1 10^3/ul (4.8-10.8)
[2019-06-10 07:06] LABS: ABNORMAL IP MESSAGE 1; BASOPHIL # 0.1 10^3/ul (0.0-0.1); BASOPHILS % 0.4 % (0.0-2.0); EOSINOPHILS % 0.1 % (0.0-7.0); HEMOGLOBIN 9.2 g/dl (12.0-16.0); LYMPHOCYTES # 0.4 10^3/ul (0.8-2.9); MEAN CORPUSCULAR HEMOGLOBIN 25.7 pg (29.0-33.0); MEAN CORPUSCULAR HGB CONC 28.8 g/dl (32.0-37.0); MEAN CORPUSCULAR VOLUME 89.4 fl (82.0-101.0); MEAN PLATELET VOLUME 11.6 fl (7.4-10.4); MONOCYTE # 1.1 10^3/ul (0.3-0.9); MONOCYTES % 8.2 % (0.0-11.0); NEUTROPHIL # 11.5 10^3/ul (1.6-7.5); NEUTROPHILS % 87.8 % (39.0-77.0); NUCLEATED RED BLOOD CELLS% 0.2 /100WBC (0.0-0.0); PLATELET COUNT 370 10^3/UL (140-415); RED BLOOD COUNT 3.58 10^6/ul (4.20-5.40); RED CELL DISTRIBUTION WIDTH 15.6 % (11.5-14.5)
[2019-06-10 07:08] LABS: POSITIVE DIFF @See below
[2019-06-10 07:30] LABS: ANION GAP 19 (5-13); CALCIUM 8.7 mg/dl (8.4-10.2); CARBON DIOXIDE 30 mmol/L (21-31); CHLORIDE 90 mmol/L (97-110); GLUCOSE 288 mg/dl (70-220); MAGNESIUM 3.3 mg/dl (1.7-2.5); PHOSPHORUS 8.3 mg/dl (2.5-4.9); POTASSIUM 4.7 mmol/L (3.5-5.1); SODIUM 139 mmol/L (135-144)
[2019-06-10 07:40] LABS: BLOOD UREA NITROGEN 155 mg/dl (7-20)
[2019-06-10] MEDS: LORAZEPAM 2 MG INJ IV (14:27)
[2019-06-10] MEDS: morphine (DRIP) 100 MG/100 ML 100 ML IV ×3 (15:50→21:50)
[2019-06-11] MEDS: IPRATROPIUM (NEB) 0.5 MG/2.5 ML AMP HHN ×6 (01:31→20:11)
[2019-06-11] MEDS: ACETYLCYSTEINE 20% 4 ML VIAL NEB ×6 (01:31→20:11)
[2019-06-11] MEDS: LEVALBUTEROL (NEB) 0.63 MG/3 ML AMP HHN ×6 (01:32→20:11)
[2019-06-11] MEDS: morphine (DRIP) 100 MG/100 ML 100 ML IV ×2 (16:09→18:44)
[2019-06-12] MEDS: ACETYLCYSTEINE 20% 4 ML VIAL NEB ×5 (01:07→16:47)
[2019-06-12] MEDS: IPRATROPIUM (NEB) 0.5 MG/2.5 ML AMP HHN ×5 (01:07→16:47)
[2019-06-12] MEDS: LEVALBUTEROL (NEB) 0.63 MG/3 ML AMP HHN ×5 (01:07→16:47)
[2019-06-12] MEDS: morphine (DRIP) 100 MG/100 ML 100 ML IV (15:31)
== END 2019-06-13 07:58 | disposition expired | DRG 291 ==
LOC: E/R 23:58 → TEL 21:39 → E/R 19:28
PROC: 30233N1 Transfusion of Nonautologous Red Blood Cells into Peripheral Vein, Percutaneous Approach (ICD-10-PCS; 2019-06-06)
PROC: 4A033R1 Measurement of Arterial Saturation, Peripheral, Percutaneous Approach (ICD-10-PCS; principal; 2019-06-08)
PROC: 5A09457 Assistance with Respiratory Ventilation, 24-96 Consecutive Hours, Continuous Positive Airway Pressure (ICD-10-PCS; 2019-06-08)
DX: I13.0 Hypertensive heart and chronic kidney disease with heart failure and stage 1 through stage 4 chronic kidney disease, or unspecified chronic kidney disease (principal); I50.33 Acute on chronic diastolic (congestive) heart failure; J18.9 Pneumonia, unspecified organism; J96.00 Acute respiratory failure, unspecified whether with hypoxia or hypercapnia; E87.3 Alkalosis; N17.9 Acute kidney failure, unspecified; N18.4 Chronic kidney disease, stage 4 (severe); E87.1 Hypo-osmolality and hyponatremia; Z66 Do not resuscitate; E11.22 Type 2 diabetes mellitus with diabetic chronic kidney disease; E66.9 Obesity, unspecified; Z68.39 Body mass index [BMI] 39.0-39.9, adult; I35.0 Nonrheumatic aortic (valve) stenosis; E78.5 Hyperlipidemia, unspecified; I48.91 Unspecified atrial fibrillation; F99 Mental disorder, not otherwise specified; D63.1 Anemia in chronic kidney disease; D50.0 Iron deficiency anemia secondary to blood loss (chronic); Z79.4 Long term (current) use of insulin; Z87.11 Personal history of peptic ulcer disease; Z86.73 Personal history of transient ischemic attack (TIA), and cerebral infarction without residual deficits
CPT/HCPCS: 36415; 36430; 36600; 70450; 71045; 73700; 80048; 80053; 80061; 81001; 81003; 82043; 82550; 82553; 82803; 82962; 83036; 83735; 83880; 84100; 84155; 84300; 84443; 84484; 85025; 85610; 85730; 86850; 86900; 86901; 86920; 87070; 93005; 93306; 93971; 94640; 94660; 94664; 96374; 97161; 99285-25